=== PATIENT | female | born 1960 | race African-American/Black ===

== ENCOUNTER 2018-04-15 00:01 | Emergency (ER) | payer BC ==
[~2018-04-15] VITALS: Ht 170.2 cm; Wt 77.7 kg
[~2018-04-15 00:01] MED LIST: HYDROCODON-ACE1 EAC7 PO; MIRALAX255 GM PO; MOTRIN800 MG PO; TRAMADOL HCL50 MG PO; VITAMIN D31000 UNIT PO; WOMEN'S DAILY1 EAC4 PO
[2018-04-15 00:28] LABS: HEMATOCRIT 38.9 % (36.0-46.0); HEMOGLOBIN 12.9 G/DL (11.9-15.5); MCH 30.4 PG (29.0-34.0); MCHC 33.2 G/DL (30.0-36.0); MCV 91.5 FL (83-99); PLATELET COUNT 241 K/uL (156-360); RBC DIS.WIDTH-CV 12.9 % (11.8-14.6); RBC DIS.WIDTH-SD 42.5 % (39-53); RED BLOOD COUNT 4.25 M/uL (3.80-5.20); WHITE BLOOD COUNT 5.6 K/uL (4.1-10.2)
[2018-04-15 00:39] LABS: CHLORIDE 103 mEq/L (99-109); POTASSIUM 4.2 mEq/L (3.7-5.4); SODIUM 137 mEq/L (136-147)
[2018-04-15 00:40] LABS: GLUCOSE 101 mg/dL (70-99)
[2018-04-15 00:44] LABS: CREATININE 0.8 mg/dL (0.6-1.3); GFR ESTIMATE (CALCULATED) > 59 mL/min/
[2018-04-15 00:45] LABS: UREA NITROGEN (BUN) 25 mg/dL (9-23)
[2018-04-15 00:54] LABS: TROP-I INTERPRETATION NEGATIVE; TROPONIN-I < 0.01 ng/mL (0.0-0.30)
[2018-04-15 03:08] VITALS: BP 121/74
== END 2018-04-15 03:10 | disposition home or self-care (01) ==
LOC: EME 00:01
DX: R07.89 Other chest pain (principal); M54.2 Cervicalgia; I10 Essential (primary) hypertension; K21.9 Gastro-esophageal reflux disease without esophagitis; Z90.49 Acquired absence of other specified parts of digestive tract
CPT/HCPCS: 71046; 80048; 84484; 85027; 93005; 99281; 99284